=== PATIENT | male | born 2000 | race Two or more races ===

== ENCOUNTER 2022-09-28 17:48 | Emergency (ER) | payer MEDICAID, OTHER ==
[~2022-09-28] VITALS: Ht 188 cm; Wt 175.0 kg
[~2022-09-28 17:48] MED LIST: NO HOME MEDS
[2022-09-28 18:10] VITALS: BP 135/97
[2022-09-28] MEDS ORDERED: bacitracin 15gm ointment TP ONE (19:00)
[2022-09-28] MEDS ORDERED: TETanus/Pertussis (Acell)/Diphther VAC/PF (Tdap-Adult) 0.5ml syringe IMVAC ONE (19:00)
[2022-09-28] MEDS ORDERED: LIDOcaine 1% W/epiNEPHrine 1:100,000 20ml vial IJ ONE (19:05)
== END 2022-09-28 19:26 | disposition home or self-care (01) ==
LOC: ER 17:48
DX: L02.11 Cutaneous abscess of neck (principal)
CPT/HCPCS: 10060; 90471; 90715; 99283; A6258; A6449